=== PATIENT | male | born 1940 | race Caucasian/White ===

== ENCOUNTER 2019-01-25 08:19 | Day surgery (SDC) | payer MEDICARE, BC ==
[2019-01-25] MEDS ORDERED: acetaZOLAMIDE TAB* 250 MG ONE (09:50)
[2019-01-25] MEDS ORDERED: Phenylephrine OPHTH SOL 2.5%* 2 ML ONE (09:50)
[2019-01-25] MEDS ORDERED: Neomycin/Polymy/Dex OPTH.SUSP* MAXITROL 0.1% 5 ML ONE (09:50)
[2019-01-25] MEDS ORDERED: Ketorolac 0.5% OPHTH (NF) 0.5 % 5 ML BTL ONE (09:50)
[2019-01-25] MEDS ORDERED: Proparacaine 0.5% OPHTH.SOL* 15 ML BTL ONE (09:50)
[2019-01-25] MEDS ORDERED: Lidocaine 2% w/ EPI 1:200,000* 20 ML SDV VIAL ONE (09:50)
[2019-01-25] MEDS ORDERED: Povidone Iodine 5% OPTH* 30 ML BTL ONE (09:50)
[2019-01-25] MEDS ORDERED: Cyclopentolate 1% OPTH.SOL* 2 ML BTL ONE (09:50)
[2019-01-25] MEDS ORDERED: Lidocaine 1% MPF ** 5 ML VIAL ONE (09:50)
[2019-01-25] MEDS ORDERED: Midazolam* 1 MG/ML 2 ML VIAL (2 MG) ONE (10:02)
[2019-01-25 10:59] VITALS: BP 145/67
--- NOTE | 2019-01-25 11:10 | OP ---
OPERATIVE NOTE: DATE OF OPERATION: 01/25/19 DATE OF : 42 SURGEON: Antoni Majano M.D. PREOPERATIVE DIAGNOSIS: Cataract, left eye. POSTOPERATIVE DIAGNOSIS: Cataract, left eye. OPERATIVE PROCEDURE: Extracapsular cataract extraction with intraocular lens implant left eye. PROCEDURE: The patient was brought to the operating room after being given 1/2% Alcaine with epineph rine drops in the preoperative area. The eye was prepped and draped in the usual sterile fashion. S terile drape and eyelid speculum were placed. Again, topical 1/2% Alcaine with epinephrine was given . A paracentesis incision was made at the 3 o'clock position with the No.75 blade. Clear cornea inc ision 2.2 x 2.2-mm was created at the 6 o'clock position starting at the anterior limbus using the 2. 2-mm keratome. The anterior chamber was irrigated with 0.4 mL of 1% non-preservative intracameral li docaine and filled with DisCoVisc. A capsulorrhexis was completed using the cystotome and the Utrata forceps. Hydrodissection was performed with balanced salt solution. The lens nucleus was removed wi th the Phacoemulsification handpiece without incident. Cortex was removed with the irrigation-aspira tion handpiece. The capsular bag was re-inflated using DisCoVisc and an SN60WF 22.5 implant was inse rted with the shooter. The pupil was only 3 mm. A Malyugin ring was used to dilate the pupil prior to capsulorrhexis, removed after insertion of the lens. The irrigation-aspiration handpiece was used to remove all residual DisCoVisc. The eye was refilled with balanced salt solution and the wound ch ecked and found to be watertight. Topical Maxitrol drops were given. Indication for complex cataract surgery: Pupillary abnormalities requiring pupil dilation device. [id number]/[facility] #: [id number]
== END 2019-01-25 10:55 | disposition home or self-care (01) ==
LOC: OREAST 08:19
PROVIDERS: ATTEND Specialist
DX: H25.812 Combined forms of age-related cataract, left eye (principal); H21.562 Pupillary abnormality, left eye; H04.123 Dry eye syndrome of bilateral lacrimal glands; J84.10 Pulmonary fibrosis, unspecified; K86.1 Other chronic pancreatitis; Z87.891 Personal history of nicotine dependence
CPT/HCPCS: A9270-GY; J2250; V2632

== ENCOUNTER 2019-03-27 08:20 | Day surgery (SDC) | payer MEDICARE, BC ==
[~2019-03-27 08:20] MED LIST: Buffered Lidocaine 1% SYRIN* 1 ML/SYRINGE INTRADERM ONE; Famotidine IV* 10 MG/ML 2 ML (20 mg) IV ONE; Lactated Ringers 1000 ML Bag* 1,000 ML IV SCH
[2019-03-27] MEDS ORDERED: Famotidine IV* 10 MG/ML 2 ML (20 mg) ONE (08:40)
[2019-03-27] MEDS ORDERED: ceFAZolin 2 GM in NS PREMIX(*) 2 GM/100 ML BAG IVPB ONE (08:41)
[2019-03-27] MEDS ORDERED: Dexamethasone IV* 4 MG/ML 1 ML (4 MG) ONE (10:32)
[2019-03-27] MEDS ORDERED: Lidocaine 2% PF * 5 ML VIAL ONE (10:32)
[2019-03-27] MEDS ORDERED: Propofol* 10 MG/ML 20 ML BTL ONE (10:32)
[2019-03-27] MEDS ORDERED: fentaNYL* 50 MCG/ML 2 ML VIAL (100 MCG VIAL) ONE (10:32)
[2019-03-27] MEDS ORDERED: KETAMINE HCL* 50 MG/ML 10 ML VIAL ONE (10:32)
[2019-03-27] MEDS ORDERED: Midazolam* 1 MG/ML 5 ML VIAL (5 MG) ONE (10:32)
[2019-03-27] MEDS ORDERED: Ondansetron INJ* 2 MG/ML VIAL ONE (10:32)
[2019-03-27] MEDS ORDERED: Bupivacaine 0.25% SDV PF* 10 ML VIAL INJ ONE (11:35)
[2019-03-27 13:40] VITALS: BP 146/74
[2019-03-27] MEDS ORDERED: Naloxone* 0.4 MG/ML 1 ML VIAL IV PRN (14:03)
[2019-03-27] MEDS ORDERED: fentaNYL* 50 MCG/ML 2 ML VIAL (100 MCG VIAL) IV PRN (14:03)
[2019-03-27] MEDS ORDERED: Ondansetron INJ* 2 MG/ML VIAL IV PRN (14:03)
--- NOTE | 2019-03-27 23:53 | OP ---
DATE OF OPERATION: 03/27/19 - [facility] DATE OF : 42 SURGEON: Cheo Calderon MD. PARACHUTE TAPER: MARIEL Burnette. ANESTHESIOLOGIST: Dr. Abbott. ANESTHESIA: Local MAC. PRE-OP DIAGNOSIS: Left ruptured flexor pollicis longus tendon. POST-OP DIAGNOSIS: Left ruptured flexor pollicis longus tendon. PROCEDURE PERFORMED: Fusion of left thumb interphalangeal joint with autogenous local bone graft. INDICATIONS: Mr. Ricardo had a closed rupture of the tendon. He has quite a bit of medical problems and the best thing to do would be to do a fusion of the IP joint to restore strength. He agreed and wanted to proceed. ESTIMATED BLOOD LOSS: 2 mL. COMPLICATIONS: None. FINDINGS: See above and below. DESCRIPTION OF PROCEDURE: Mr. Ricardo was seen in the preoperative holding area. The correct side, site, and procedures were identified. We came back to the operating room. The arm was prepped and draped in the usual fashion. A time-out was performed. The arm was exsanguinated and the forearm tourniquet was inflated to 225 mmHg. I made an H-shaped incision over the dorsum of the IP joint, full-thickness flaps were raised above the tendon. The tendon was split at its insertion. I went ahead and used a rongeur to remove the subchondral bone and any remnants of cartilage until a good cancellus bone. I then opposed the 2 surfaces in gentle flexion. I passed a guidewire for the mini Acutrak screw from distal to proximal down to the subchondral bone. I then advanced up out of the bone. I then drilled and selected the longest screw , which was a 30 that I had available. First, I placed a mini Acutrak screw, but I did not think it was big enough, so I backed out and placed a 30 standard Acutrak screw. This had excellent bite and generated very nice compression of the fusion site. Prior to compressing with the screw, I placed some local bone graft in the fusion site. At this point, everything was looking good. Wound was irrigated out. The tendon and skin were closed as 1 layer with 4-0 nylon suture. Wound was dressed and a thumb spica splint out of the tip of the thumb was applied. He was taken to the recovery room in stable condition. [id number]/[facility] #: [id number] PRINCESS
== END 2019-03-27 14:19 | disposition home or self-care (01) ==
LOC: OR 08:20
PROVIDERS: ATTEND Orthopaedic Surgery Hand Surgery
DX: M66.342 Spontaneous rupture of flexor tendons, left hand (principal); J44.9 Chronic obstructive pulmonary disease, unspecified; E78.5 Hyperlipidemia, unspecified; K21.9 Gastro-esophageal reflux disease without esophagitis; J84.10 Pulmonary fibrosis, unspecified; Z87.891 Personal history of nicotine dependence; I10 Essential (primary) hypertension; Z99.81 Dependence on supplemental oxygen; M81.0 Age-related osteoporosis without current pathological fracture
CPT/HCPCS: 76000; C1713; C1776; J0690; J1100; J2250; J2405; J2704; J3010; J3490